=== PATIENT | female | born 1990 | race Asian ===

== ENCOUNTER 2021-11-03 14:07 | Emergency (ER) | payer SELFPAY ==
[~2021-11-03] VITALS: Ht 152.4 cm; Wt 56.7 kg
--- NOTE | 2021-11-03 14:30 | NUR ---
BIBYanique RA99 "was found in car admits to sniffing whippets". The patient is alert and oriented x4. Denies pain. In room air and denies SOB. Respiraon regular and unlabored. The patient denies SI/HI. Denies having any type of hallucinations at this time. [employer] officers at the bedside. Sitter at the bedside. Will continue to monitor the patient.
--- NOTE | 2021-11-03 14:46 | NUR ---
MOTHER ISAI CALLED LEFT CONTACT # [phone]
--- NOTE | 2021-11-03 14:47 | NUR ---
CALLED FORGING PRESS SETTER UP FOR PT
--- NOTE | 2021-11-03 14:54 | NUR ---
URINE SAMPLE OBTAINED AND HANDED TO LAB
[2021-11-03 15:17] LABS: BILIRUBIN,URINE NEGATIVE (NEGATIVE); COLOR,URINE YELLOW (YELLOW); LEUKOCYTE ESTERASE ,URINE TRACE (NEGATIVE); NITRITE, URINE NEGATIVE (NEGATIVE); PH,URINE 7.5 (5.0-8.0); PROTEIN,URINE NEGATIVE (NEGATIVE); UGLUCOSE NEGATIVE (NEGATIVE); UROBILINOGEN,URINE 0.2 EU/dL (0.2)
[2021-11-03 15:37] LABS: BASOPHILS # (AUTO) 0.1 K/uL (0.0-0.2); LYMPHOCYTES # (AUTO) 2.6 K/uL (0.8-4.8); MEAN CORPUSCULAR HGB CONC 34 g/dl (31.0-36.0); MONOCYTES # (AUTO) 0.5 K/uL (0.1-1.30); MONOCYTES % (AUTO) 6.5 % (2.0-12.0)
[2021-11-03 15:57] LABS: EOSINOPHILS % (AUTO) 4.4 % (0.0-6.0); HEMATOCRIT 43 % (33-45); HEMOGLOBIN 14.8 g/dL (11.5-14.8); LYMPHOCYTES % (AUTO) 34.8 % (20.0-44.0); MEAN CORPUSCULAR VOLUME 96 fL (82-100); NEUTROPHILS % (AUTO) 53.3 % (43.0-81.0); PLATELET COUNT (AUTO) 342 K/uL (150-450); WHITE BLOOD COUNT (AUTO) 7.5 K/uL (4.3-11.0)
[2021-11-03 16:06] LABS: CALCIUM, SERUM 9.2 mg/dL (8.5-10.1); CARBON DIOXIDE 25 mmol/L (21-32); CHLORIDE 107 mmol/L (98-107); GLUCOSE 100 mg/dL (74-106); POTASSIUM 3.4 mmol/L (3.5-5.1); SODIUM SERUM 141 mmol/L (136-145); UREA NITROGEN, BLOOD 11 mg/dL (7-18)
--- NOTE | 2021-11-03 16:07 | NUR ---
SS consult: MARYANN met with pt. bedside. Pt. is alert & oriented x 4 and makes good eye contact. The pt. appears well-groomed with euthymic mood and speech is WNL. Pt. denies current hallucinations. Pt. denies current SI/HI and denies Hx. of self-harm. Pt. states she has been off her psych meds: Wellbutrin for 2 weeks because she thought she was doing better and could manage without. Pt. stated she is agreeable to restart he psych Tx with psychiatrist Tejas Lott at [facility] and restart medication. Pt. states she has a therapist as well. Pt. stated her family and friends are her support system. Pt. admits to using "whippets". Pt. accepted substance abuse referrals. MARYANN called [facility]et[facility] C. [phone] to evaluate pt. Cayetano stated he will be here in about 30 mins. MARYANN notified Sukumar in ED and discussed with . Addendum: 11/03/21 at 1633 by DOMINICK ADDICTION RESOURCES For Drugs and Alcohol [facility] Substance Abuse Helpline(SAS)-[facility] Outpatient treatment, residential treatment, recovery support for youth and adults [facility] www.P2 SciencefaFireScope [facility] Teen programs for drug/alcohol education and support [facility]. Program for adults, sliding scale provides support and education [employer]ul[facility]dik www.Vitals (vitals.com).Hero [employer] Management [facility] [place]; Outpatient/residential treatment programs; transition to sober living Cri-Help www.cri-help.org [place]; Outpatient and residential treatment programs; transition to sober living [facility]ARP [facility] [place] [facility] Kendall Eli; Outpatient education and supportive programs for teens and adults [facility] www.oasiswomensrecovery.org [place]; Residential treatment and work program for females only [facility] www.BitArmor Systemsxpomfret center.Hero Card Management AS [place]: Outpatient/residential treatment program for teens and young adults [facility] www.[facility].org [place] Detox, inpatient, outpatient for adults and youth [facility], [facility]. [place]; Outpatient programs and referrals to community residential programs. Alcoholics Anonymous -SFV information and meeting and schedules www.aa-intergroup.org Ca-Rfow-Pzgiljy https://al-anon.org/ [place] support groups for family of alcoholics. Marijuana Anonymous www.madistrict6.org -SFV listing of meetings Narcotics Anonymous www.na.org SOBER LIVING RESOURCES [facility] www.soberhousing.net A non-profit agency that provides resources to recovery and sober living homes throughout [facility] Men's Sober Living Homes: A Work in ProgressLisa [facility] Recovery Advocates, [facility] Women's Sober Living Homes: [facility] x [phone] [place], [place] [facility] Coed Sober Living Homes: [facility] Counseling--Outpatient [facility] [address] [place] [address] (Specializes in in-depth psychotherapy for emotional distress: anxiety, depression, interpersonal conflicts, life transitions, childhood abuse) [facility] [address] [place] [address] (Assist with solving problem marital difficulties, separation & divorce, aging parents, & grief, chronic & terminal illness) [facility] [address] [place] [address] (Deal with loss & grief, anxiety, marital difficulties) Homebound/Mental Health Services [address] [place] [address] (Provide in-home mental services to people who are incapable of leaving their homes) Organization for Needs of the Elderly Senior Service/Resource Center [address] [place] [address] [facility] [address] [place] [address] Mental Health Services Milvia Mendoza [address] [place] [address] Services: Outpatient therapy for children, teens, young adults, adults, older adults, and families; Psychiatric services, medication support Psychiatric Outpatient Services [facility] Partial Hospitalization and Intensive Outpatient Program (Managed Care and [place] Only)[address] [facility]. [facility] [phone] [facility] Partial Hospitalization and Outpatient [id number] [facility]. [address] [place], [place] [phone] [facility] Partial Hospitalization and Outpatient [id number] [facility] [place], [place] [phone] [facility] Mental Health [place] [address] [place], [place] [phone] [facility] Partial Hospitalization and Outpatient [id number] Juany Sandra Liao, [phone] Crisis and Hotline Telephone Numbers 24-Hour service unless stated [place] Crisis Hotlines: [facility] Mental Health/Crisis Line........130.409.6087 Suicide Prevention Center (24 Hours).......654.626.7094 Suicide Prevention Crisis Center.......356.472.5914 (24 Hours) Assaults Against Women Hotline.........773.954.7616 (24 Hours -- [facility]) Women and Children Crisis Usp...........[phone] (24 Hours) Child Abuse Hotline............745.645.5723 [facility] (24 Hours)..........[phone] Alcoholics Anonymous (24 Hours)..........[phone] Cocaine Anonymous (24 Hours)............[phone] Narcotics Anonymous (24 Hours)..........[phone] Marie Coates [facility] [address] [place] [address]
[2021-11-03 16:12] LABS: ALANINE AMINOTRANSFERASE 22 U/L (12-78); ALBUMIN 4.3 g/dL (3.4-5.0); ALCOHOL, BLOOD < 3 mg/dL (0-0); ALKALINE PHOSPHATASE 53 U/L (46-116); ASPARTATE AMINOTRANSFERASE 18 U/L (15-37); BILIRUBIN,DIRECT 0.1 mg/dL (0.0-0.2); BILIRUBIN,TOTAL 0.5 mg/dL (0.2-1.0); TOTAL PROTEIN, SERUM 8.6 g/dL (6.4-8.2)
[2021-11-03 16:13] LABS: ACETAMINOPHEN < 0 ug/ml (10-30)
[2021-11-03 16:45] LABS: WBC,URINE 0-2 /HPF (0-3)
[2021-11-03 16:46] LABS: BACTERIA,URINE Few /HPF (None Seen); SQUAMOUS EPITHELIAL CELL,UR Few /HPF (None Seen)
--- NOTE | 2021-11-03 18:30 | NUR ---
The patient is alert and oriented x4. Denied pain. In room air and denied SOB. Respiration regular and unlabored. Denied SI/Hi. Denied having any type of hallucinations. Patient discharged to home in stable condition. Written and verbal after care instructions given. Patient verbalized understanding of instruction.
[2021-11-03 19:08] VITALS: BP 129/71
== END 2021-11-03 19:08 | disposition home or self-care (01) ==
LOC: ER 14:11
DX: F41.0 Panic disorder [episodic paroxysmal anxiety] (principal); R45.851 Suicidal ideations; Z88.1 Allergy status to other antibiotic agents
CPT/HCPCS: 36415; 80048-TC; 80076-TC; 81001; 84703-TC; 85025-TC; G0480